=== PATIENT | female | born 1980 | race Caucasian/White ===

== ENCOUNTER 2024-02-09 07:38 | Day surgery (SDC) | payer BC ==
[2024-02-03 15:15] VITALS: BMI 47.9
[2024-02-09] MEDS ORDERED: LIDOCAINE HCL/PF 2% SDV 5ML VIAL ONE (07:41)
[2024-02-09] MEDS ORDERED: PROPOFOL 160 ML ONE (07:42)
[2024-02-09 07:52] VITALS: TEMP 97.1
[2024-02-09 08:54] VITALS: RESP 18
[2024-02-09 09:10] VITALS: BP 125/62; PULSE 84
== END 2024-02-09 09:09 | disposition home or self-care (01) ==
LOC: FASU-ENDO 07:38
PROVIDERS: ATTEND Internal Medicine Gastroenterology
PROC: 0DJD8ZZ Inspection of Lower Intestinal Tract, Via Natural or Artificial Opening Endoscopic (ICD-10-PCS; principal; 2024-02-09 08:23)
DX: Z12.11 Encounter for screening for malignant neoplasm of colon (principal); K57.30 Diverticulosis of large intestine without perforation or abscess without bleeding
CPT/HCPCS: 81025